=== PATIENT | male | born 2005 | race Caucasian/White ===

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

== ENCOUNTER 2024-02-26 21:30 | Emergency (ER) | payer OTHER, SELFPAY ==
[2024-02-26 21:35] VITALS: BP 164/70
--- NOTE | 2024-02-26 22:01 | ED.MUSCINJ ---
HPI-Injury
General
Chief Complaint: Musculo-Skeletal Complaint
Source: patient
Exam Limitations: none
Time Seen by Provider: 02/26/24 21:41
Nursing documentation reviewed up to this point in time: agreed with
History of Present Illness-Injury
Initial Injury comments:
Pleasant a 18-year-old male presents to the emergency department with right shoulder pain. He was snowboarding and inadvertently hit a unseen mogul. He landed on his right arm. He noticed a deformity in his clavicle. He was at [facility] and came
here for evaluation. Denies head injury or loss of consciousness. Reports no other injuries.
Past History
Past History
ED Past Medical History: None
ED Past Surgical History: Tonsilectomy
Social History
Tobacco: Non-smoker
Alcohol: None
Personal: Single
Living: with family
Employment: Employed
Musculoskeletal Injury Exam
Musculoskeletal Injury Exam
Right Shoulder:
Pain with Movement?: Severe
Tender to palpation?: Moderate
Soft tissue swelling?: Mild
External deformity and angulation?: Mild
Range of motion: Limited
Distal skin color and temperature: normal-warm & good color
Capillary Refill: normal
Phy Exam
General Physical Exam
General Presentation: well appearing and moderate distress
General age: appears stated age
General Skin: warm and dry
General Habitus: normal
General Mental: alert
General Hydration: appears well hydrated
ENT Exam
ENT Exam: EOMI, pharynx normal, neck supple and normocephalic
Eye Exam
Eye Exam: PERRL, cornea clear and conjunctiva normal
Cardiovascular Exam
Cardiovascular Exam: regular rate/rhythm, no edema, no murmur and normal peripheral pulses
Pulmonary Exam
Pulmonary Exam: lungs clear, no respiratory distress, no rales, no crackles, no rhonchi, no stridor, no wheezing and no cough
Neurological Exam
Neurological Exam: alert, oriented x3, no motor deficits and speech normal
Musculoskeletal Exam
Musculoskeletal Exam: full ROM and no edema
Skin Exam
Skin Exam: normal color, warm/dry, no rash and no petechia
Psychiatric Exam
Psychiatric Exam: normal mood/affect
Injury Course
Orders/Labs/Results
Orders:
Orders
02/26/24 21:38
Clavicile, Right Complete CR [CR Clavicle - Right Complete] Urgent
Comment:
Reason For Exam: FALL SNOWBOARDING
02/26/24 22:01
Sling Right-Treatment ONCE
Oxycodone/Acetaminophen [Percocet 5/325] 1 tablet PO NOW STA
*Critical Care Note
Total Time (30-74mins, 75-104mins- exclusive of procedures): Not Applicable
ED Attending Note
-
Portions of this chart may have been created with voice recognition software.� Occasional wrong word or��sound alike� substitutions may have occurred due to the inherent limitations of voice recognition software.
Discharge Plan
Departure
Patient Disposition: Home (Routine Discharge)
Date of Disposition: 02/26/24
Time of Disposition: 22:03
Patient with high blood pressure during this ER visit?: Yes
Condition: Good
Discharge Problem:
Clavicle fracture
Instructions: How to Use a Shoulder Sling, Fractures - Clavicle (Adult)
Prescriptions:
New
oxycodone-acetaminophen [Percocet] 5-325 mg tablet
1 tab PO Q6HPRN PRN (Reason: pain) Qty: 10 0RF
No Action
amoxicillin-pot clavulanate 1 TABLET tablet
1 tab PO Q12 Qty: 14 0RF
Referrals:
Almas Chawla DO [Family Provider] -
Xavier Flannery MD [Active] - Next open appointment
Activity Restrictions/Additional Instructions:
It was a pleasure meeting you and taking part in your care. We hope for your continued healing and wellness.
Please read discharge instructions in their entirety. However, they are for general education and may not describe your exact diagnosis at discharge. Information on your ER visit and medical conditions were discussed with you along with appropriate
follow up information...
If indicated, please take your medications as instructed and indicated on discharge paperwork.
Please schedule a follow up appointment as directed. Call to schedule an appointment
Please return to the emergency department with ANY change in, persisting, or worsening of symptoms. If any of your symptoms do not improve, or persist, or become more severe within 6-12 hours, please return to the emergency department for further
care.
Please return to the emergency department if you develop a headache, neck pain/stiffness, fever greater than 100.4F, chest pain, shortness of breath, persistent nausea, vomiting, slurred speech, difficulty walking, numbness/tingling, weakness, signs
of infection or any other symptoms that are worrisome to you.
If you have any questions or concerns please do not hesitate to call the Hospital at or E-mail me directly at [email or web address]
Interventions
Interventions:
*Risk Screen - Suicide Last Done: 02/26/24 21:35
*General Assessment Last Done: 02/26/24 22:17
*Neglect/Abuse Screening Last Done: 02/26/24 21:35
*Nursing Disposition Last Done: 02/26/24 22:17
ED-Musculoskeletal Assessment Last Done: 02/26/24 22:05
Discharge Date and Time
Discharge Date/Time: 02/26/24 22:22
Print Language: BARBADIAN
[2024-02-26] MEDS: PERCOCET 5/325 1 TABLET PO (22:11)
[2024-02-26 22:15] VITALS: BP 118/64
== END 2024-02-26 22:22 | disposition home or self-care (01) ==
LOC: EMR 21:30
PROVIDERS: EMERGENCY PHYSICIAN Student in an Organized Health Care Education/Training Program; FAMILY PHYSICIAN Family Medicine
DX: S42.031A Displaced fracture of lateral end of right clavicle, initial encounter for closed fracture (principal); W22.09XA Striking against other stationary object, initial encounter; Y93.23 Activity, snow (alpine) (downhill) skiing, snowboarding, sledding, tobogganing and snow tubing; R03.0 Elevated blood-pressure reading, without diagnosis of hypertension
CPT/HCPCS: 99283; 73000

== ENCOUNTER 2024-03-02 06:41 | Day surgery (SDC) | payer OTHER, SELFPAY ==
[2024-03-02 12:49] VITALS: BMI 26.8
[2024-03-02 12:50] VITALS: BMI 26.8
[2024-03-02 12:54] VITALS: BP 115/82
[2024-03-02] MEDS: CELEBREX 200 MG PO (13:08)
[2024-03-02] MEDS: TYLENOL 1000 MG PO (13:08)
[2024-03-02] MEDS: NORMOSOL-R/PLASMALYTE-A 1000 IV (13:09)
[2024-03-02 17:00] VITALS: BP 115/82; BP 143/71
[2024-03-02] MEDS: DILAUDID 0.5 MG IV ×2 (17:06→17:18)
[2024-03-02 17:15] VITALS: BP 136/79
[2024-03-02 17:30] VITALS: BP 138/77
[2024-03-02 17:45] VITALS: BP 153/65
[2024-03-02] MEDS: ROXICODONE 5 MG PO (18:00)
[2024-03-02 18:10] VITALS: BP 124/64
== END 2024-03-02 18:20 | disposition home or self-care (01) ==
LOC: SDS 06:41
PROVIDERS: ATTENDING PHYSICIAN Specialist
DX: S42.021A Displaced fracture of shaft of right clavicle, initial encounter for closed fracture (principal); W18.39XA Other fall on same level, initial encounter; Y93.23 Activity, snow (alpine) (downhill) skiing, snowboarding, sledding, tobogganing and snow tubing
CPT/HCPCS: 23515; C1713; 73000; 76000